=== PATIENT | male | born 1970 | race Caucasian/White ===

== ENCOUNTER 2022-01-11 13:46 | Emergency (ER) | payer BC, SELFPAY ==
[2022-01-11 13:54] VITALS: BP 123/74; PULSE 78; RESP 18; TEMP 36.8; O2SAT 98
--- NOTE | 2022-01-11 14:00 | DI.US_ITS ---
Exam(s) US LOWER EXTREMITY VENOUS LT EXAM: US LOWER EXTREMITY VENOUS LT CLINICAL HISTORY: left leg pain TECHNIQUE: Left lower extremity venous ultrasound performed using grayscale, color-flow, and spectra l Doppler analysis. COMPARISON: No exams were available for comparison FINDINGS: The left common femoral, femoral and popliteal veins demonstrate normal compressibility, augmentation , and color Doppler. The posterior tibial veins are patent. The saphenofemoral junction is unremarka ble. There is no evidence of a Chavez cyst. The soft tissues are unremarkable. IMPRESSION: No DVT. DATA REPOSITORY:
--- NOTE | 2022-01-11 14:28 | ED.GENADUL_ITS ---
Discharge Plan Disposition Patient Disposition: HOME Condition: Stable Discharge Details Clinical Impression: Acute leg pain Primary Care Provider: Unknown,Unknown ED Provider: Romie Garcia Home Meds and New Rx's Prescriptions: No Action metoprolol succinate 100 mg tablet extended release 24 hr 100 mg PO QAM Label Comments: TAKE ONE TABLET BY MOUTH EVERY DAY buspirone 10 mg tablet 20 mg PO QAM Label Comments: TAKE 1 TABLET BY MOUTH DAILY NO ALCOHOL NO DRIVING IF SIDE EFFECTS tamsulosin 0.4 mg capsule 0.4 mg PO HS Label Comments: TAKE ONE CAPSULE BY MOUTH EVERY DAY 30 MINUTES FOLLOWING THE SAME MEAL EACH DAY omeprazole 40 mg capsule,delayed release(DR/EC) 40 mg PO HS cholecalciferol (vitamin D3) [Vitamin D3] 25 mcg (1,000 unit) Tablet 25 mcg PO HS metformin 500 mg tablet 500 mg PO QAM Label Comments: TAKE 1 TABLET BY MOUTH DAILY cranberry 500 mg Capsule 500 mg PO QAM tadalafil 5 mg tablet 5 mg PO QAM [place] 3 Fish Oil Capsule 1,000 mg PO QAM melatonin 3 mg Tablet 3 mg PO HS PRN Discharge Instructions Instructions: Leg Pain (ED) Additional Instructions: Continue to take your normally prescribed medication and you may use [id number] acetaminophen or ibuprofen as needed for discomfort. Perform frequent leg stretches and allow for plenty of rest for walking. If you develop any new or significant worsening of symptoms feel free to return to the closest emergency department for reassessment If no significant worsening of symptoms but not improving it is recommended that you follow-up your primary care provider for reassessment Referrals: Primary Care Provider [Outside] Discharge Data Discharge Date/Time-TO BE ENTERED AT DEPARTURE: 01/11/22 15:26 Medical Decision Making Patient presenting to the emergency department for chief complaint of left leg pain. Patient states that he is on a road trip from [place] and while he has stopped to have multiple episodes to get out and stretch this morning around 5 AM he woke up with significant left calf pain. He does have significant varicose veins and swelling on that side that he states are unchanged. Slight swelling to both legs but not 1 worse the other, denies all bulbar symptoms. Physical exam does show tenderness to the posterior calf on the left leg and palpable varicose veins. We will plan on performing ultrasound imaging of the left lower extremity for evaluation of DVT versus muscular cramping. Patient denies any need of pain medication pending results. Preliminary results per materials technician show no DVT present in left lower extremity. Will encourage patient to continue to stretch and use [id number] pain medication as needed for suspected muscle cramping. Close monitoring of symptoms along with return and follow-up precautions were discussed. After discussion of diagnosis and plan of care patient has no further needs, questions, or concerns and states clear understanding to return to the emergency department for any worsening symptoms. This documentation was generated using [employer] system, please disregard any oddities of phrase or misspellings. HPI General Mode of arrival: ambulatory . Date/Time Provider Initiated Documentation: 01/11/22 14:04 . Limitations to Documentation: no limitations . Information obtained by: patient, family and RN notes reviewed . History of Present Illness 51 year old M presents to the emergency department with the chief complaint of left leg/calf pain, described as moderate, with intensity rated at 6. Quality is described as aching (cramping), and is localized to the left and lower extremity. Patient started experiencing this hour(s) (8) and it has been constant. No relieving factors improve symptom(s), No exacerbating factors reported . Patient notes no other symptoms.. Patient did receive the following treatments prior to arrival, none Related Data Home Medications Medication Instructions Recorded Confirmed buspirone 10 mg tablet 20 mg PO QAM 01/11/22 01/11/22 cholecalciferol (vitamin D3) 25 25 mcg PO HS 01/11/22 01/11/22 mcg (1,000 unit) tablet (Vitamin D3) cranberry 500 mg capsule 500 mg PO QAM 01/11/22 01/11/22 melatonin 3 mg tablet 3 mg PO HS PRN 01/11/22 01/11/22 metformin 500 mg tablet 500 mg PO QAM 01/11/22 01/11/22 metoprolol succinate 100 mg 100 mg PO QAM 01/11/22 01/11/22 tablet,extended release 24 hr omega-3 fatty acids 1,000 mg PO QAM 01/11/22 01/11/22 omeprazole 40 mg capsule,delayed 40 mg PO HS 01/11/22 01/11/22 release tadalafil 5 mg tablet 5 mg PO QAM 01/11/22 01/11/22 tamsulosin 0.4 mg capsule 0.4 mg PO 01/11/22 01/11/22 Allergies Allergy/AdvReac Type Severity Reaction Status Date / Time No Known Allergies Allergy Unverified 01/11/22 13:59 General Stated Complaint: Vascular KADEN: 3 Review of Systems Constitutional Constitutional: Denies chills, Denies fever(s) and Denies headache(s) ENT Ears, Nose, Mouth, and Throat: Denies headache(s) Cardiovascular Cardiovascular: Denies chest pain, Denies irregular heart rhythm, Reports nika dication, Reports leg edema, Denies lightheadedness and Denies dyspnea Respiratory Respiratory: Denies cough and Denies dyspnea Gastrointestinal Gastrointestinal: Denies abdominal pain Musculoskeletal Musculoskeletal: Reports as per HPI Integumentary/Breasts Skin/Breast: Denies erythema and Denies rash Neurologic Neurologic: Reports confusion and Denies headache(s) Psychiatric Psychiatric: Reports confusion PFSH All Active Problems (Updated 01/11/22 @ 15:20 by Romie Garcia NP) Acute leg pain (Acute) GERD (gastroesophageal reflux disease) (Chronic) Hypertension (Chronic) Diabetes (Chronic) Social History Smoking/Tobacco Use Status: Former Tobacco Use Smoking risk assessment performed?: Yes Details: quit smoking 7-8 years ago Do you feel safe at home: Yes Do you feel safe in your relationship?: Yes Exam Const General: cooperative, healthy appearing, comfortable and no acute distress Orientation: alert, awake and oriented x3 Resp Effort & Inspection: normal respiratory effort and able to speak in complete sentences Auscultation: clear to auscultation bilaterally Cardio Rate: regular rate Rhythm: regular rhythm Heart Sounds: S1 normal and S2 normal Pulses: normal peripheral pulses Neuro General: patient alert, patient awake, patient oriented x3, moves all extremities and no focal motor deficits Extrem General: normal exam except as noted Left lower extremity: normal capillary refill, no joint enlargement and lower leg Details: tenderness Location: of the posterior calf, palpable cord and non- pitting edema; no erythema Course Vital Signs Vital signs: Vital Signs Temperature 36.8 C 01/11/22 13:54 Pulse 78 01/11/22 13:54 Respiratory Rate 18 01/11/22 13:54 Blood Pressure 123/74 01/11/22 13:54 Pulse Oximetry 98 01/11/22 13:54 Temperature 36.8 C 01/11/22 13:54 Temperature Source Skin 01/11/22 13:54 Pulse 78 01/11/22 13:54 Respiratory Rate 18 01/11/22 13:54 Respiratory Effort 01/11/22 14:05 Blood Pressure 123/74 01/11/22 13:54 Blood Pressure Position Sitting 01/11/22 13:54 Pulse Oximetry 98 01/11/22 13:54 Oxygen Delivery Method Room Air 01/11/22 13:54 Oxygen Flow Rate 0 01/11/22 13:54 Pain Level 6 01/11/22 13:54
== END 2022-01-11 15:26 | disposition home or self-care (01) ==
PROVIDERS: Emergency Provider Nurse Practitioner Family
DX: M79.662 Pain in left lower leg (principal)
CPT/HCPCS: 99284; 93971; 99283